=== PATIENT | male | born 1930 | race Caucasian/White ===

== ENCOUNTER 2016-04-18 14:38 | Inpatient (IN) | payer MEDICARE ==
[2016-04-18 15:07] VITALS: BMI 32.5
--- NOTE | 2016-04-18 15:17 | EDPRACDOC ---
- General Information Chief Complaint: Chest Pain Stated Complaint: CP Time Seen by Provider: 04/18/16 15:15 Information Source: Patient, Family Mode of Arrival: Ambulance Home Medications: Home Medications Aspirin (Enteric Coated) [Halfprin] 81 mg PO DAILY 04/22/13 Atorvastatin [Lipitor 20 mg Tablet] 20 mg PO HS 04/22/13 Calcium Carbonate/Vitamin D3 [Calcium + Vit D Caplet (600mg/400IU)] 1 tab PO BID 04/22/13 Furosemide 40 mg PO DAILY 04/22/13 Gemfibrozil [Lopid] 600 mg PO BID 04/22/13 Insulin Aspart [Novolog Flexpen] 6 - 12 unit SQ BID 04/22/13 Insulin Glargine [Lantus Pen] 45 units SQ BID 04/22/13 Lisinopril [Zestril] 10 mg PO HS 04/22/13 Metoprolol Succinate (XL) [Toprol Xl] 50 mg PO DAILY 04/22/13 Albuterol Sulfate [Ventolin Hfa] 1 - 2 puff INH Q4H PRN 04/18/16 Apixaban [Eliquis] 5 mg PO BID 04/18/16 Diclofenac Sodium [Voltaren 1% Topical Gel] 1 applic TOP QID 04/18/16 Levothyroxine [Synthroid, Levoxyl] 125 mcg PO DAILY 04/18/16 Omeprazole 20 mg PO DAILY 04/18/16 Ranitidine HCl 300 mg PO QHS 04/18/16 Tiotropium [place] [Spiriva] 18 mcg INH DAILY 04/18/16 Triamcinolone [Kenalog, Aristocort] 1 applic TOP DIR 04/18/16 Allergies/Adverse Reactions: Allergies Allergy/AdvReac Type Severity Reaction Status Date / Time dabigatran etexilate mesylate Allergy Unknown See Verified 04/18/16 15:01 [From Pradaxa] Comments niacin Allergy Unknown Verified 04/18/16 15:01 [From Niaspan Extended-Release] - History of Present Illness Onset: this am HPI: woke up with chills, developed N/V followed by Cp burning in his chest, went to PCP, had [facility] and sent here for evaluation of chest pain .He had some SOB. All symptoms now resolved. Chest Pain Location: Reports: Left Chest Pain Radiation: Reports: Shoulder (L). Denies: Jaw Symptoms Occur: Reports: Gradually Cardiac Risk Factors: Denies: Smoker Cardiac History of: Denies: [place] Prehospital Care: Reports: ASA Pain Status: Resolved Pain Description: Reports: Burning Pain Severity: Moderate Pain Worsens With: Reports: Nothing Pain Improves With: Reports: Nothing Associated Signs and Symptoms: Denies: Diaphoretic, Calf Pain or Swelling ED Past Medical History - History Reviewed Yes Nurses notes reviewed and agree except as marked - Patient Medical History Cardiac History: Reports: Atrial Fibrillation, Hypertension, Hypercholesterolemia Respiratory History: Reports: Asthma, COPD GI/ History: Reports: Renal Disease, Kidney Stones, Ulcer Musculoskeletal History: Reports: Arthritis Psychological History: Denies: Depression Systemic History: Reports: Anemia (? iron), Diabetes, Hypothyroidism. Denies: Cancer - Family Medical History Reports: Hypertension (Mother), Diabetes (Mother), Stroke (Mother). Denies: Cancer, Cardiac Disorders - Social Medical History Smoking Status: Former smoker EDM Review of Systems - Review of Systems ROS Negative Except as Marked: Yes All systems reviewed and were negative except as marked - Physical Exam Constitutional: Alert (Awake), No apparent distress Oriented to: Time, Person, Place Last recorded Vital Signs: Last Vital Signs Temp 97.6 F 04/18/16 15:01 Pulse 89 04/18/16 15:09 Resp 20 04/18/16 15:01 BP 109/60 04/18/16 15:01 Pulse Ox 95 04/18/16 15:01 Oxygen Pulse Oxygen Saturation 95 O2 Device Room Air Oxygen Flow Rate Fraction of Inspired Oxygen ( FIO2) - HEENT Head: Normal Eye Exam: Normal Oropharynx: Normal Neck: Normal - Respiratory/Cardiovascular Respiratory: Normal - CTA. negative: Accessory Muscle Use Cardiovascular: Irregular - GI Auscultation: Normal Palpation: Normal Tenderness: Non tender Fregoso's Sign: Negative - Musculoskeletal Back: Normal - Integumentary Skin: Normal, Warm, Dry - Neurologic Memory Impaired: Normal Motor Function: Normal Cranial Nerve: Normal Thought: Coherent Perception: Normal - Action ASA given in the ED: Yes - Results 04/18/16 15:55 04/18/16 15:55 - EKG EKG #1 EKG Time: 15:08 -: Yes EKG interpreted by me Rate: bpm: 87 Rhythm: Afib Block: IVCD Hypertrophy: LVH ST: Nonsp - Diagnostic Imaging Chest Image interpreted by: EXAM: PORTABLE CHEST 1 VIEW COMPARISON: Portable exam 1516 hours compared to 04/28/2015 FINDINGS: Minimal enlargement of cardiac silhouette. Mediastinal contours and pulmonary vascularity normal. Mild RIGHT basilar atelectasis. Remaining lungs clear. No pleural effusion or pneumothorax. IMPRESSION: Enlargement of cardiac silhouette with mild RIGHT basilar atelectasis. Electronically Signed By: Jayme Spivey M.D. On: 04/18/2016 15:30 Electronically Signed By: Jayme Spivey MD Electronically Signed Date/Time: [id number] Dictate Date/Time: 04/18/16 1528 Technologist: Ruma Powell Transcribed By: Rick Transcribed Date/Time: 04/18/16 1530 - Departure Final Diagnosis: Chest pain Instructions: Chest Pain (ED), Chest Wall Pain (ED) Referrals: Billy Vee MD [Primary Care Provider] - One Week Prescriptions: No Action Metoprolol Succinate (XL) [Toprol Xl] 50 mg PO DAILY Gemfibrozil [Lopid] 600 mg PO BID Atorvastatin [Lipitor 20 mg Tablet] 20 mg PO HS Furosemide 40 mg PO DAILY Aspirin (Enteric Coated) [Halfprin] 81 mg PO DAILY Insulin Glargine [Lantus Pen] 45 units SQ BID Insulin Aspart [Novolog Flexpen] 6 - 12 unit SQ BID Calcium Carbonate/Vitamin D3 [Calcium + Vit D Caplet (600mg/400IU)] 1 tab PO BID Lisinopril [Zestril] 10 mg PO HS Tiotropium [place] [Spiriva] 18 mcg INH DAILY Omeprazole 20 mg PO DAILY Levothyroxine [Synthroid, Levoxyl] 125 mcg PO DAILY Diclofenac Sodium [Voltaren 1% Topical Gel] 1 applic TOP QID Apixaban [Eliquis] 5 mg PO BID Triamcinolone [Kenalog, Aristocort] 1 applic TOP DIR Albuterol Sulfate [Ventolin Hfa] 1 - 2 puff INH Q4H PRN PRN Reason: SHORTNESS OF BREATH Ranitidine HCl 300 mg PO QHS - Physician Consulted Hospitalist Time Called: 17:16 (Dr Harvey to admit)
[2016-04-18] MEDS ORDERED: NS 250 ML IV ONE (15:21)
--- NOTE | 2016-04-18 15:32 | DIRPT ---
CLINICAL DATA: Chills, chest pain, nausea and vomiting today, some shortness of breath, history hypertension, atrial fibrillation, asthma, COPD EXAM: PORTABLE CHEST 1 VIEW COMPARISON: Portable exam 1516 hours compared to 04/28/2015 FINDINGS: Minimal enlargement of cardiac silhouette. Mediastinal contours and pulmonary vascularity normal. Mild RIGHT basilar atelectasis. Remaining lungs clear. No pleural effusion or pneumothorax. IMPRESSION: Enlargement of cardiac silhouette with mild RIGHT basilar atelectasis. Electronically Signed By: Jayme Spivey M.D. On: 04/18/2016 15:30
[2016-04-18 16:06] LABS: MPV 8.5 fL (7.4-10.4)
[2016-04-18 16:28] LABS: BLOOD UREA NITROGEN 31 MG/DL (9-20); CALCIUM 9.5 MG/DL (8.4-10.2); CALCULATED OSMOLALITY 286 MOs/Kg (270-290); CHLORIDE 104 mEq/L (98-107); GLUCOSE 69 MG/DL (70-99); SODIUM LEVEL 146 mEq/L (137-146); TOTAL PROTEIN 7.5 G/DL (6.3-8.2)
[2016-04-18] MEDS ORDERED: Levofloxacin 500 mg/100 ml D5W 500 MG/100 ML RTU IV ONE (16:36)
[2016-04-18 16:42] LABS: SEG NEUTROPHIL 79 % (45-76)
[2016-04-18 17:03] LABS: LEUKOCYTES/URINE NEG (NEGATIVE); NITRITE/URINE NEG (NEGATIVE); RBC/URINE 0-2 (0-2); URINE OCCULT BLOOD 3+ (NEG/TRACE); WBC/URINE 0-2 (0-2)
[2016-04-18] MEDS ORDERED: DEXTROSE 25 GM/50 ML PFS IV PRN (17:18)
[2016-04-18] MEDS ORDERED: ACETAMINOPHEN 325 MG/TAB TABLET PO PRN (17:18)
[2016-04-18] MEDS ORDERED: ALBUTEROL 0.083% 3 ML NEB NEB PRN (17:18)
[2016-04-18] MEDS ORDERED: ONDANSETRON HCL 4 MG/2 ML VIAL IV PRN (17:18)
[2016-04-18] MEDS ORDERED: GLUCOSE (ORAL GEL) 15 GM TUBE PO PRN (17:18)
[2016-04-18] MEDS ORDERED: GLUCAGON 1 MG VIAL SQ PRN (17:18)
--- NOTE | 2016-04-18 17:36 | HISTPHYS ---
- Chief Complaint Chest pain - History of Present Illness This is a pleasant 85-year-old male with a history of atrial fibrillation and chronic cough related to prior tobacco abuse who is being admitted to the hospital with chest pain found to have likely community-acquired pneumonia. The patient tells me that he has been in his usual state of health over the last several days, with a chronic productive cough. This morning, he woke up with some slight nausea and chills, followed by intractable nausea with vomiting for several hours until he was able to see his primary care physician urgently. He also had associated heartburn-like sensation, with a burning in they middle of his chest, which did not radiate. This burning sensation in his chest did not seem to be alleviated or exacerbated by anything the patient did. He took 2 aspirin this morning at home, and presented to his PCPs office, where they immediately called EMS to transport him to the emergency department to evaluate his chest pain. Here in the emergency department, he was found to have a leukocytosis as well as right lower lobe chest x-ray abnormality which is atelectasis versus pneumonia. Patient denies any associated diarrhea, fevers , sick contacts. - Medical History Cardiac History: Reports: Atrial Fibrillation, Hypertension, Hypercholesterolemia Respiratory History: Reports: Asthma, COPD GI/ History: Reports: Renal Disease, Kidney Stones, Ulcer Musculoskeletal History: Reports: Arthritis Systemic History: Reports: Anemia (? iron), Diabetes, Hypothyroidism. Denies: Cancer Psychological History: Denies: Depression - Medictions/Allergies Allergies dabigatran etexilate mesylate [From Pradaxa] Allergy (Unknown, Verified 15:01) See Comments Really dizzy, Heartburn really bad, itching, Feet swelling niacin [From Niaspan Extended-Release] Allergy (Verified 04/18/16 15:01) Unknown Home Medications Aspirin (Enteric Coated) [Halfprin] 81 mg PO DAILY 04/22/13 Atorvastatin [Lipitor 20 mg Tablet] 20 mg PO HS 04/22/13 Calcium Carbonate/Vitamin D3 [Calcium + Vit D Caplet (600mg/400IU)] 1 tab PO BID 04/22/13 Furosemide 40 mg PO DAILY 04/22/13 Gemfibrozil [Lopid] 600 mg PO BID 04/22/13 Insulin Aspart [Novolog Flexpen] 6 - 12 unit SQ BID 04/22/13 Insulin Glargine [Lantus Pen] 45 units SQ BID 04/22/13 Lisinopril [Zestril] 10 mg PO HS 04/22/13 Metoprolol Succinate (XL) [Toprol Xl] 50 mg PO DAILY 04/22/13 Albuterol Sulfate [Ventolin Hfa] 1 - 2 puff INH Q4H PRN 04/18/16 Apixaban [Eliquis] 5 mg PO BID 04/18/16 Diclofenac Sodium [Voltaren 1% Topical Gel] 1 applic TOP QID 04/18/16 Levothyroxine [Synthroid, Levoxyl] 125 mcg PO DAILY 04/18/16 Omeprazole 20 mg PO DAILY 04/18/16 Ranitidine HCl 300 mg PO QHS 04/18/16 Tiotropium [place] [Spiriva] 18 mcg INH DAILY 04/18/16 Triamcinolone [Kenalog, Aristocort] 1 applic TOP DIR 04/18/16 - Family History Reports: Hypertension (Mother), Diabetes (Mother), Stroke (Mother). Denies: Cancer, Cardiac Disorders - Social History Smoking Status: Former smoker - Review of Systems Yes All systems reviewed and were negative except as marked (And as mentioned in the history of present illness above.) Constitutional: No Symptoms Reported (No fever, chills, wt loss/gain, fatigue) Eyes: No Symptoms Reported (No blurry vision, visual changes) Respiratory: No Symptoms Reported (No cough,wheezing or shortness of breath) Cardiovascular: No Symptoms Reported (No Chest pain, palpitations) Gastrointestinal: No Symptoms Reported (No abdominal pain, nausea, vomiting, diarrhea or constipation) Genitourinary: No Symptoms Reported (No dysuria) Musculoskeletal:: No Symptoms Reported (No headache, dizzness, seizures or focal weakness) Integumentary: No Symptoms Reported (No rashes or lesions) Hematologic: No Symptoms Reported (No bleeding or easy bruising) Endocrine: No Symptoms Reported (No polyuria) - Physical Exam Vital Signs: Initial Vitals Temperature 97.6 F 04/18/16 15:01 Pulse Rate 89 04/18/16 15:01 Respiratory Rate 20 04/18/16 15:01 Blood Pressure 109/60 04/18/16 15:01 Pulse Oxygen Saturation 95 04/18/16 15:01 Constitutional: No apparent distress Oriented to: Time, Person, Place Exam: Elderly male appearing his stated age resting on a stretcher in the emergency department with family at bedside. - HEENT Head: Normal (normocephalic,atraumatic, trachea midline) Eye: Normal (EOMI, Sclera white) Oropharynx: Normal (moist) Nose: No Symptoms Reported (without discharge or bleeding) Respiratory: Diminished, Rales, Rhonchi. negative: Stridor, Tachypnea Cardiovascular: Normal (RRR, no murmurs, rubs or gallops) - GI Palpation: Normal (soft, non distended and nontender) - Musculoskeletal Extremities: Normal (normal tone, no cyanosis or edema) - Integumentary Skin: Normal (no rashes or lesions) - Focused CV Perfusion Exam Vital Signs: Last Vital Signs Temp 97.6 F 04/18/16 15:01 Pulse 89 04/18/16 15:09 Resp 20 04/18/16 15:01 BP 109/60 04/18/16 15:01 Pulse Ox 95 04/18/16 15:01 - Lab Results Laboratory Tests 04/18/16 04/18/16 15:55 15:55 WBC 17.3 H Hgb 14.4 Hct 43.9 Potassium 3.9 BUN 31 H Creatinine 1.10 AST 41 ALT 30 - Diagnostic Findings Chest x-ray: Enlargement of cardiac silhouette with mild RIGHT basilar atelectasis. - Assessment (1) CAP (community acquired pneumonia) J18.9 - PNEUMONIA, UNSPECIFIED ORGANISM Acute I think this is most likely the cause of his chest pain is nausea and vomiting, given the fact that he has leukocytosis, subjective chills at home with productive cough and chest x-ray abnormality. Will treat empirically for his community-acquired pneumonia with azithromycin and Rocephin. Pulmonary toilet, respiratory therapy has been consulted for supplemental oxygen as needed. (2) Chest pain R07.9 - CHEST PAIN, UNSPECIFIED Acute Reason for evaluation in the emergency department. Given the fact that he has had some chills, productive cough, chest x-ray abnormality and elevated leukocytosis I think his chest pain is most likely related to a community-acquired pneumonia, which has led to some nausea and vomiting due to his infection. Will trend his troponins despite this , and continue his usual cardiac medications. Can consider stress testing prior to discharge home, could consider discussing this with his dynamicist Dr. Billy mckeon. (3) Diabetes type 2, controlled E11.9 - TYPE 2 DIABETES MELLITUS WITHOUT COMPLICATIONS Chronic Diabetic diet when eating, sliding scale insulin to supplement his twice daily basal insulin, which will be continued at a lower dose. Check hemoglobin A1c and urine microalbumin. (4) GERD (gastroesophageal reflux disease) K21.9 - GASTRO-ESOPHAGEAL REFLUX DISEASE WITHOUT ESOPHAGITIS Chronic This is the most likely cause of his burning chest pain, in my opinion given its nature and character. Will continue his home PPI therapy. Could switch to IV PPI therapy if his heart continues to be a problem. (5) Hyperlipidemia E78.5 - HYPERLIPIDEMIA, UNSPECIFIED Chronic Continue home statin. Check fasting lipids in the morning. (6) Hypertension I10 - ESSENTIAL (PRIMARY) HYPERTENSION Chronic Continue home medication. (7) Hypothyroidism E03.9 - HYPOTHYROIDISM, UNSPECIFIED Chronic Check TSH in the morning. Case Care Discussed with: Patient, Family, Nursing Staff Total Time: 42
[2016-04-18] MEDS ORDERED: DICLOFENAC 1% TOPICAL GEL 100 GM TUBE TOP SCH (18:00)
[2016-04-18] MEDS ORDERED: CEFTRIAXONE 1 GM in D5W 100 ML IV SCH (18:00)
[2016-04-18] MEDS ORDERED: METHYLPREDNISOLONE 125 MG/2 ML VIAL IV SCH (18:00)
[2016-04-18] MEDS ORDERED: TRIAMCINOLONE 0.5% CREAM 15 GM TUBE TOP SCH ×2 (18:00→19:00)
[2016-04-18] MEDS ORDERED: GLARGINE INSULIN (LANTUS) 100 UNITS/ML PEN SQ SCH (18:00)
[2016-04-18 18:05] LABS: LDL (calc.) 91.2 MG/DL (<100); VLDL (calc.) 18.8 MG/DL (5-40)
[2016-04-18 18:34] LABS: hTSH 1.61 uIU/mL (0.5-4.67)
[2016-04-18] MEDS: Albuterol/Ipratropium Neb 3 ML NEB NEB SCH (19:56)
[2016-04-18] MEDS ORDERED: AZITHROMYCIN 500 MG in D5W 250 ML IV SCH (20:00)
[2016-04-18] MEDS: REGULAR INSULIN 100 UNITS/ML - 3 ML VIAL SQ SCH (20:55)
[2016-04-18] MEDS: GLARGINE INSULIN (LANTUS) 100 UNITS/ML PEN SQ SCH (20:56)
[2016-04-18] MEDS: CALCIUM CARBONATE + VITAMIN D 500 MG TAB PO SCH (20:57)
[2016-04-18] MEDS: GEMFIBROZIL 600 MG TAB PO SCH (20:57)
[2016-04-18] MEDS: APIXABAN 5 MG TABLET PO SCH (20:57)
[2016-04-18] MEDS: DICLOFENAC 1% TOPICAL GEL 100 GM TUBE TOP SCH (20:58)
[2016-04-18] MEDS ORDERED: Vaccine Screening Complete SCH (21:00)
[2016-04-18] MEDS ORDERED: RANITIDINE 150 MG TAB PO SCH (21:00)
[2016-04-18] MEDS ORDERED: Non-Formulary Medication ITEM (Calcium Carbonate/Vitamin D3 [Calcium + Vit D Caplet (600 PO SCH (21:00)
[2016-04-18] MEDS ORDERED: ATORVASTATIN 20 MG TAB PO SCH (21:00)
[2016-04-18] MEDS ORDERED: RANITIDINE HCL 300 MG PO SCH (21:00)
[2016-04-18] MEDS ORDERED: LISINOPRIL 10 MG TAB PO SCH (21:00)
[2016-04-19] MEDS: Albuterol/Ipratropium Neb 3 ML NEB NEB SCH ×2 (02:21→07:37)
[2016-04-19 05:23] LABS: MPV 8.8 fL (7.4-10.4)
[2016-04-19 05:40] LABS: BLOOD UREA NITROGEN 29 MG/DL (9-20); CALCIUM 8.5 MG/DL (8.4-10.2); CALCULATED OSMOLALITY 274 MOs/Kg (270-290); CHLORIDE 103 mEq/L (98-107); GLUCOSE 73 mg/dL (70-99); SODIUM LEVEL 140 mEq/L (137-146)
[2016-04-19] MEDS: REGULAR INSULIN 100 UNITS/ML - 3 ML VIAL SQ SCH ×2 (05:54→12:06)
[2016-04-19] MEDS ORDERED: LEVOTHYROXINE 125 MCG (0.125 MG) TAB PO SCH (06:00)
[2016-04-19] MEDS ORDERED: PANTOPRAZOLE 40 MG TAB PO SCH (06:00)
[2016-04-19 08:21] VITALS: BP 112/49; TEMP 98.2
--- NOTE | 2016-04-19 08:41 | DIRPT ---
CLINICAL DATA: Atrial fibrillation and cough EXAM: CHEST 2 VIEW COMPARISON: 04/18/2016 FINDINGS: Cardiac shadow is within normal limits. The lungs are well aerated bilaterally. No sizable effusion is noted. No acute bony abnormality is seen. IMPRESSION: No active cardiopulmonary disease. Electronically Signed By: Jayme Cuevas M.D. On: 04/19/2016 08:38
[2016-04-19] MEDS ORDERED: Non-Formulary Medication ITEM (Omeprazole [Omeprazole] 20 MG) PO SCH (09:00)
[2016-04-19] MEDS ORDERED: Non-Formulary Medication ITEM (Tiotropium Bromide [Spiriva] 18 MCG) INH SCH (09:00)
[2016-04-19] MEDS ORDERED: METOPROLOL (TOPROL-XL) 50 MG TAB PO SCH (09:00)
[2016-04-19] MEDS ORDERED: TRIAMCINOLONE 0.5% CREAM 15 GM TUBE TOP SCH (09:00)
[2016-04-19] MEDS ORDERED: FUROSEMIDE 40 MG TAB PO SCH (09:00)
[2016-04-19] MEDS: GEMFIBROZIL 600 MG TAB PO SCH (10:11)
[2016-04-19] MEDS: CALCIUM CARBONATE + VITAMIN D 500 MG TAB PO SCH (10:11)
[2016-04-19] MEDS: APIXABAN 5 MG TABLET PO SCH (10:11)
[2016-04-19] MEDS: DICLOFENAC 1% TOPICAL GEL 100 GM TUBE TOP SCH ×2 (10:12→12:08)
[2016-04-19] MEDS: GLARGINE INSULIN (LANTUS) 100 UNITS/ML PEN SQ SCH (10:13)
[2016-04-19 11:28] VITALS: PULSE 83
--- NOTE | 2016-04-19 11:28 | PCM.DCS92 ---
- Final/Secondary Discharge Diagnosis (1) CAP (community acquired pneumonia) Acute J18.9 - PNEUMONIA, UNSPECIFIED ORGANISM Comment: I think this is most likely the cause of his chest pain and nausea and vomiting, given the fact that he has leukocytosis, subjective chills at home with productive cough and chest x -ray abnormality. Will treat empirically for his community-acquired pneumonia with azithromycin and Rocephin. Pulmonary toilet, respiratory therapy has been consulted for supplemental oxygen as needed. (2) Chest pain Acute R07.9 - CHEST PAIN, UNSPECIFIED Comment: Reason for evaluation in the emergency department. Given the fact that he has had some chills, productive cough, chest x-ray abnormality and elevated leukocytosis I think his chest pain is most likely related to a community-acquired pneumonia, which has led to some nausea and vomiting due to his infection. Initial troponin was negative, another 1 will be checked this morning prior to discharge home, but he has no chest pain is completely hemodynamically stable and asymptomatic. (3) Diabetes type 2, controlled Chronic E11.9 - TYPE 2 DIABETES MELLITUS WITHOUT COMPLICATIONS Comment: Diabetic diet when eating, sliding scale insulin to supplement his twice daily basal insulin, which will be continued at a lower dose. Check hemoglobin A1c and urine microalbumin. (4) GERD (gastroesophageal reflux disease) Chronic K21.9 - GASTRO-ESOPHAGEAL REFLUX DISEASE WITHOUT ESOPHAGITIS Comment : This is the most likely cause of his burning chest pain, in my opinion given its nature and character. Will continue his home PPI therapy. Could switch to IV PPI therapy if his heart continues to be a problem. (5) Hyperlipidemia Chronic E78.5 - HYPERLIPIDEMIA, UNSPECIFIED Comment: Continue home statin. Check fasting lipids in the morning. (6) Hypertension Chronic I10 - ESSENTIAL (PRIMARY) HYPERTENSION Comment: Continue home medication. (7) Hypothyroidism Chronic E03.9 - HYPOTHYROIDISM, UNSPECIFIED Comment: Check TSH in the morning. Discharge Disposition: Home Cognitive Discharge Status: Unimpaired Fuctional Discharge Status: Independent Physician Follow up/Referrals: Billy Vee MD [Primary Care Provider] - One Week Home Medications / New Prescriptions: New Azithromycin [Zithromax] 500 mg PO DAILY #4 tablet Cefdinir [Omnicef] 300 mg PO BID 4 Days Continue Metoprolol Succinate (XL) [Toprol Xl] 50 mg PO DAILY Gemfibrozil [Lopid] 600 mg PO BID Atorvastatin [Lipitor 20 mg Tablet] 20 mg PO HS Furosemide 40 mg PO DAILY Aspirin (Enteric Coated) [Halfprin] 81 mg PO DAILY Insulin Glargine [Lantus Pen] 45 units SQ BID Insulin Aspart [Novolog Flexpen] 6 - 12 unit SQ BID Calcium Carbonate/Vitamin D3 [Calcium + Vit D Caplet (600mg/400IU)] 1 tab PO BID Lisinopril [Zestril] 10 mg PO HS Tiotropium [place] [Spiriva] 18 mcg INH DAILY Omeprazole 20 mg PO DAILY Levothyroxine [Synthroid, Levoxyl] 125 mcg PO DAILY Diclofenac Sodium [Voltaren 1% Topical Gel] 1 applic TOP QID Apixaban [Eliquis] 5 mg PO BID Triamcinolone [Kenalog, Aristocort] 1 applic TOP DAILY Albuterol Sulfate [Ventolin Hfa] 1 - 2 puff INH Q4H PRN PRN Reason: SHORTNESS OF BREATH Ranitidine HCl 300 mg PO QHS O2 Device: Room Air Diet at Discharge: Diabetic Activity: No Restrictions - DC Summary Notes HPI/Notes: 85-year-old male was admitted to the hospital for evaluation for chest pain, found to have a community-acquired pneumonia, and severe heartburn which is felt to be the cause of his chest pain. His troponins have been negative during this hospital stay, his treated for empiric IV antibiotics for community- acquired pneumonia and has improved. He was ambulated multiple times on room air, and did not desaturate enough to qualify for supplemental oxygen. As such , he will be discharged home today to complete a course of p.o. antibiotics for community-acquired pneumonia. All questions were answered and is ready for discharge today. Please see the hospital problems and discharge problems above for details of the hospital course including diagnostics and treatment. The plan of care including medications, prognosis, follow-up including alarm symptoms for which medical care should be sought were reviewed with the patient and any available family members/caretakers. The patient is agreeable to discharge today, and all questions were answered by me to their satisfaction. Hospital Course Note:: Discharge summary on patient named CONCHA COX admitted to [facility] on 04/18/16 by Chad Wells MD. Date of discharge is []. Total Time: 35 - Physical Exam Vital Signs: Last Vital Signs Temp 98.2 F 04/19/16 08:18 Pulse 89 04/19/16 09:28 Resp 18 04/19/16 08:18 BP 112/49 L 04/19/16 08:18 Pulse Ox 95 04/19/16 08:18 Oxygen Pulse Oxygen Saturation 95 O2 Device Room Air Oxygen Flow Rate Fraction of Inspired Oxygen ( FIO2) Constitutional: No apparent distress Oriented to: Time, Person, Place - HEENT Head: Normal (normocephalic,atraumatic, trachea midline) Eye: Normal (EOMI, Sclera white) Oropharynx: Normal (moist) Nose: No Symptoms Reported (without discharge or bleeding) - Respiratory/Cardiovascular Respiratory: Normal - CTA. negative: Rhonchi, Stridor, Tachypnea, Wheezes Cardiovascular: Normal (RRR, no murmurs, rubs or gallops) - GI Palpation: Normal (soft, non distended and nontender) - Musculoskeletal Extremities: Normal (normal tone, no cyanosis or edema) - Integumentary Skin: Normal (no rashes or lesions) - Neurologic Memory Impaired: Normal Thought: Coherent Perception: Normal
== END 2016-04-19 13:17 | disposition home or self-care (01) | DRG 195 ==
LOC: ED 14:38 → PCU 17:28
PROVIDERS: ADMIT Internal Medicine; ATTEND Internal Medicine
DX: J18.9 Pneumonia, unspecified organism (principal); I48.91 Unspecified atrial fibrillation; E11.9 Type 2 diabetes mellitus without complications; K21.9 Gastro-esophageal reflux disease without esophagitis; E78.5 Hyperlipidemia, unspecified; I10 Essential (primary) hypertension; E03.9 Hypothyroidism, unspecified; E78.00 Pure hypercholesterolemia, unspecified; M19.90 Unspecified osteoarthritis, unspecified site; Z88.8 Allergy status to other drugs, medicaments and biological substances; Z79.82 Long term (current) use of aspirin; Z79.899 Other long term (current) drug therapy; Z79.4 Long term (current) use of insulin; Z87.891 Personal history of nicotine dependence
CPT/HCPCS: 36415; 71010; 71020; 80048; 80053; 80061; 81001; 82043; 82962; 83036; 83605; 83690; 84443; 84484; 85007; 85027; 87040; 93005; 94640; 96365; 96372; 97162; 98960; 99284; J0456; J0696; J1956; J2930; J3490; J7060; J7070; J7620